=== PATIENT | male | born 1935 | race Caucasian/White ===

== ENCOUNTER → 2016-12-15 | Outpatient (CLI) | payer OTHER ==
[~2016-12-15] MED LIST: ACCUPRIL PO; ACCUPRIL5 MG PO; ACTOS PO; ALPRAZOLAM0.25 MG PO; AMARYL; AMARYL PO; ANTIDIARRHEAL PO; ASPIRIN PO; B12; B12 PO; BYETTA; DEXILANT60 MG PO; FISH OIL 1,001000 MG PO; FOLIC ACID PO; IMURAN50 MG PO; JANUVIA50 MG PO; MESTINON; MESTINON180 MG PO; MULTI VITAMIN1 EACH PO; MULTIVITAMIN FOR MEN; PRAVACHOL PO; TOPROL XL PO; TOPROL XL50 MG PO; TRADJENTA5 MG PO; VIAGRA PO; ZOFRAN ODT4 MG PO
[2016-12-15 11:45] LABS: BASOPHIL% 0.7 % (0-2.5); EOSINOPHIL# 0.1 X10e3 (0-0.7); EOSINOPHIL% 1.1 % (0.0-7.0); HEMATOCRIT 37.2 % (38.0-50.0); HEMOGLOBIN 12.3 gm/dL (13.0-16.0); LYMPHOCYTE# 0.7 X10e3 (1.0-3.5); LYMPHOCYTE% 10.1 % (17.0-45.0); MEAN CELL VOLUME 92.9 FL (83-96); MEAN CORPUSCULAR HEMOGLOBIN 30.7 PG (28-34); MEAN CORPUSCULAR HGB CONC 33.1 g/dL (30-36); MEAN PLATELET VOLUME 8.1 FL (6.5-11.5); MONOCYTE# 0.6 X10e3 (0-1.0); MONOCYTE% 9.3 % (3.0-12.0); NEUTROPHIL# 5.2 X10e3 (1.5-7.1); NEUTROPHIL% 78.8 % (40-75); PLATELET COUNT 240 X10e3 (140-420); RED BLOOD COUNT 4.01 X10e (3.90-5.60); RED CELL DISTRIBUTION WIDTH 14.9 % (11.0-15.5); WHITE BLOOD COUNT 6.7 X10e3 (4.0-10.5)
[2016-12-15 11:46] LABS: DIFF IND NO
[2016-12-15 11:56] LABS: ALBUMIN SERUM 3.9 g/dL (3.5-5.0); BILIRUBIN,TOTAL 0.7 mg/dL (0.2-2.0); BUN/CREATININE RATIO 12.5; CALCIUM SERUM 8.5 mg/dL (8.4-10.2); GLOM FILT RATE Estimated 30.8 mL/min (>60); POTASSIUM 4.7 mmol/L (3.5-5.1); PROTEIN TOTAL SERUM 7.2 g/dL (6.0-8.3)
[2016-12-15 12:41] LABS: SEDIMENTATION RATE-SW ONLY 13 mm/hr (0-40)
== END | disposition home or self-care (01) ==
LOC: SLAB 11:18
PROVIDERS: Internal Medicine Gastroenterology
DX: G70.00 Myasthenia gravis without (acute) exacerbation (principal); Z79.899 Other long term (current) drug therapy
CPT/HCPCS: 36415; 80053; 85025; 85651; 86140